=== PATIENT | female | born 2000 | race Caucasian/White ===

== ENCOUNTER 2020-01-26 22:24 | Emergency (ER) | payer BC ==
[~2020-01-26] VITALS: Ht 177.8 cm; Wt 81.7 kg
[~2020-01-26 22:24] MED LIST: ADDERALL 30 MG30 MG PO; GIANVI 3 MG-0.1 EACH PO; PROZAC10 MG PO; WELLBUTRIN SR150 MG PO
[2020-01-27 00:17] VITALS: BP 125/79
== END 2020-01-27 01:02 | disposition home or self-care (01) ==
LOC: ER 22:24
DX: S82.52XA Displaced fracture of medial malleolus of left tibia, initial encounter for closed fracture (principal); S81.011A Laceration without foreign body, right knee, initial encounter; F32.9 Major depressive disorder, single episode, unspecified; F41.9 Anxiety disorder, unspecified; F90.9 Attention-deficit hyperactivity disorder, unspecified type; Z79.899 Other long term (current) drug therapy; W10.8XXA Fall (on) (from) other stairs and steps, initial encounter; Y93.01 Activity, walking, marching and hiking; Y92.89 Other specified places as the place of occurrence of the external cause; Y99.8 Other external cause status